=== PATIENT | male | born 1995 | race Caucasian/White ===

== ENCOUNTER 2017-01-29 07:48 | Emergency (ER) | payer SELFPAY ==
--- NOTE | 2017-01-29 08:23 | ER Document Report ---
ED General - General Chief Complaint: Suicidal Ideation Stated Complaint: PSYCH EVAL Time seen by provider: 08:21 Mode of Arrival: Medic Information source: Patient Notes: 21-year-old male says he's had suicidal thoughts for several days. He denies homicidal ideation and says he presents now because suicidal thoughts are more intense. Patient hesitates when asked about audio or visual hallucinations and refuses to directly answer the question on multiple occasions. He reports multiple family members who also have "problems like migraine" but he will not elaborate. He reports being in normal state of health otherwise recently Physical Exam: General: Alert, appears well. Calm and cooperative HEENT: Normocephalic. Atraumatic. PERRLA. Extraocular movements intact. Oropharynx clear. Neck: Supple. Non-tender. Respiratory: No respiratory distress. Clear and equal breath sounds bilaterally. Cardiovascular: Regular rate and rhythm. Abdominal: Normal Inspection. Soft, non-tender. No distension. Normal Bowel Sounds. Back: Non-tender. No deformity or step off. Extremities: Moves all four extremities. Upper extremities: Normal inspection. Non-tender. Normal color. Normal ROM. Normal temperature. Lower extremities: Normal inspection. Non-tender. No edema. Normal color. Normal ROM. Normal temperature. 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 Dry. Normal color. TRAVEL OUTSIDE OF THE [place] IN LAST 30 DAYS: No - Related Data Allergies/Adverse Reactions: No Known Allergies Allergy (Verified 07/03/15 21:55) Past Medical History - Social History Smoking Status: Current Every Day Smoker Family History: Other - Psychiatric problems patient could not further specify Patient has suicidal ideation: Yes Patient has homicidal ideation: No - Past Medical History Cardiac Medical History: Reports: None Pulmonary Medical History: Reports: None Psychiatric Medical History: Reports: Hx Bipolar Disorder Past Surgical History: Reports: Hx Oral Surgery - Immunizations Hx Diphtheria, Pertussis, Tetanus Vaccination: Yes Review of Systems - Review of Systems Constitutional: denies: Chills, Fever EENT: denies: Ear pain, Throat pain Cardiovascular: denies: Chest pain, Dyspnea Respiratory: denies: Cough, Short of breath Gastrointestinal: denies: Abdominal pain, Diarrhea, Nausea, Vomiting Genitourinary: denies: Burning, Dysuria Musculoskeletal: denies: Back pain Skin: denies: Rash Hematologic/Lymphatic: denies: Swollen glands Neurological/Psychological: denies: Weakness, Numbness Physical Exam - Vital signs Vitals: Temp Pulse Resp BP Pulse Ox 98.5 F 75 14 133/74 H 99 01/29/17 08:02 01/29/17 08:02 01/29/17 08:02 01/29/17 08:02 01/29/17 08:02 Course - Re-evaluation Re-evalutation: 01/29/17 10:03 Patient is medically clear for mental health disposition 01/29/17 15:27 Patient is more forthcoming now regarding circumstances of his arrival. He reports that he is long history of illicit drug use and also has feelings of worthlessness and pointlessness in life and had been lying on the couch and his grandfather's house for the past week. This morning grandfather told him he had to move out and this is what prompted patient's arrival here. Patient reports after arrival here and being around other people he feels that her spirits have been lifted he says he no longer feels suicidal. The patient is denying any audiovisual hallucinations and objectively is not hallucinating now and is able to carry on appropriate conversations. 01/29/17 15:50 01/29/17 15:56 Patient has been calm and cooperative during his stay here does not appear despondent or withdrawn. He reports no suicidal ideation now and he reports he did not ever really had suicidal ideation. Patient will be discharged with instructions follow-up with [facility]. He does not meet IVC criteria and I assessed him is not being a threat to self or others currently. - Vital Signs Vital signs: Temp Pulse Resp BP Pulse Ox 98.4 F 77 16 117/56 L 97 01/29/17 15:08 01/29/17 15:08 01/29/17 15:08 01/29/17 15:08 01/29/17 15:08 - Laboratory Result Diagrams: 01/29/17 08:20 01/29/17 08:20 Laboratory results interpreted by me: 01/29/17 08:20 BUN 23 H Salicylates < 1.0 L Acetaminophen < 10 L Urine tox screen negative - EKG Interpretation by Me Additional EKG results interpreted by me: 01/29/17 08:29 EKG reviewed by myself shows sinus rhythm at 74 with early repolarization changes 01/29/17 10:02 Discharge - Discharge Clinical Impression: Polysubstance abuse Bipolar disorder Qualifiers: Active/Remission status: remission status unspecified Qualified Code(s): F31.9 - Bipolar disorder, unspecified Condition: Good Disposition: HOME, SELF-CARE Additional Instructions: Bipolar Disorder Bipolar disorder is also called manic-depressive disorder. Depression alternates with brain hyperactivity called alaina. Each phase lasts from several days to a few weeks. We don't know exactly what causes bipolar disorder , but it's treatable. During the "manic phase," you may feel elated and energetic. You may have racing thoughts, rapid speech, increased activity, and grandiose ideas. During this time, you may not realize how poor your judgement is. Inappropriate spending, drug abuse, excessive alcohol use, marriage problems, and irresponsible sexual behavior are common during the manic phase. During the "depressive phase," you might feel depressed, guilty, worthless , fatigued, and unable to concentrate. You might have thoughts of suicide. Good treatments are available for bipolar disorder. [place] is a classic drug for bipolar disorder, and is still often useful. If the manic phase is very mild, an antidepressant alone can be prescribed. If the manic phase is very severe, an antipsychotic medicine (such as Haldol) may be needed. The treatment must be matched to your symptoms, so it's important to work closely with your psychiatric care provider. Contact your physician, the hospital emergency center, crisis line, or your counsellor if you are losing control or having self-destructive thoughts. Referrals: [facility] [Provider Group] - Follow up in 3-5 days
[2017-01-29 08:33] LABS: ABSOLUTE BASOPHILS # (AUTO) 0.1 10^3/uL (0.0-0.2); ABSOLUTE EOSINOPHILS # (AUTO) 0.5 10^3/uL (0.0-0.6); ABSOLUTE LYMPHOCYTES (AUTO) 2.2 10^3/uL (0.5-4.7); ABSOLUTE NEUT (AUTO) 5.4 10^3/uL (1.7-8.2); BASOPHILS % (AUTO) 0.9 % (0-2); EOSINOPHILS % (AUTO) 5.7 % (0-6); HEMATOCRIT 46.8 % (37.9-51.0); HEMOGLOBIN 16.1 g/dL (13.5-17.0); HGB HCT DIFFERENCE 1.5; LYMPHOCYTES % (AUTO) 23.8 % (13-45); MEAN CORPUSCULAR HEMOGLOBIN 31.6 pg (27.0-33.4); MEAN CORPUSCULAR HGB CONC 34.3 g/dL (32.0-36.0); MEAN CORPUSCULAR VOLUME 92 fl (80-97); MONOCYTES % (AUTO) 11.2 % (3-13); RED BLOOD COUNT 5.09 10^6/uL (4.35-5.55); RED CELL DISTRIBUTION WIDTH 13.7 % (11.5-14.0); SEGMENTED NEUTROPHILS % (AUTO) 58.4 % (42-78); WHITE BLOOD COUNT 9.2 10^3/uL (4.0-10.5)
[2017-01-29 08:46] LABS: APPEARANCE,URINE CLEAR; BILIRUBIN,URINE NEGATIVE (NEGATIVE); GLUCOSE, URINE NEGATIVE (NEGATIVE); KETONES,URINE NEGATIVE (NEGATIVE); LEUKOCYTE ESTERASE,URINE NEGATIVE (NEGATIVE); NITRITE,URINE NEGATIVE (NEGATIVE); PROTEIN,URINE NEGATIVE (NEGATIVE); URINE SPECIFIC GRAVITY 1.024; UROBILINOGEN,URINE NEGATIVE mg/dL (<2.0)
[2017-01-29 08:56] LABS: ALANINE AMINOTRANSFERASE 30 U/L (21-72); ALBUMIN 4.2 g/dL (3.5-5.0); ALKALINE PHOSPHATASE 74 U/L (38-126); ANION GAP 11 (5-19); ASPARTATE AMINO TRANSFERASE 20 U/L (17-59); BILIRUBIN,DIRECT 0.2 mg/dL (0.0-0.4); BILIRUBIN,TOTAL 0.3 mg/dL (0.2-1.3); BLOOD UREA NITROGEN 23 mg/dL (7-20); CALCIUM 9.4 mg/dL (8.4-10.2); CARBON DIOXIDE 29 mmol/L (22-30); CHLORIDE 102 mmol/L (98-107); CREATININE RESULT 0.95 mg/dL (0.52-1.25); GLUCOSE 88 mg/dL (75-110); POTASSIUM 4.6 mmol/L (3.6-5.0); TOTAL PROTEIN 6.6 g/dL (6.3-8.2)
[2017-01-29 08:59] LABS: ALCOHOL < 10 mg/dL (NONE DETECTED)
[2017-01-29 09:05] LABS: URINE BARBITURATES SCREEN NEGATIVE; URINE METHADONE SCREEN NEGATIVE; URINE OPIATES LOW NEGATIVE; URINE PHENCYCLIDINE SCREEN NEGATIVE
--- NOTE | 2017-01-29 13:25 | EKG REPORT ---
SEVERITY:- NORMAL ECG - SINUS RHYTHM ST ELEV, PROBABLE NORMAL EARLY REPOL PATTERN : Confirmed by: Dylan Vazquez MD 29-Jan-2017 13:23:43
[2017-01-29 15:09] VITALS: BP 117/56
--- NOTE | 2017-01-29 15:54 | ER Document Report ---
ED Psych Disorder / Suicide - General Chief Complaint: Psych Problem Stated Complaint: PSYCH EVAL Mode of Arrival: Medic Information source: Patient, Relative - multiple attempts made at contacting grandfather, [facility] Records TRAVEL OUTSIDE OF THE [place] IN LAST 30 DAYS: No - HPI Patient complains to provider of: Suicidal ideation Onset: Other - the past 6 days Onset was: Gradual Suicide Risk Factors: Bipolar, Lack of social support, Male, No spouse, Substance abuse - patietn alludes to cannabis abuse and is unclear when he recently discontinued use. Possibly a few weeks ago. Situational problems related to: Work, Other - famillial stressors Normal mood: Yes Associated symptoms: Normal affect - odd, but likely baseline, Flat affect, Flight of ideas, Manic - hypomanic, Uncooperative Similar symptoms previously: Yes - history of Recently seen / treated by doctor: No Notes: Patient is a 21-year-old male who presented early this morning via EMS due to self-reported suicidal ideations. Initially upon arrival patient was guarded with information and did not provide specifics. Example when charge nurse triaged patient into system, instead of reporting symptoms he asked her if she wanted the ICD-9 diagnoses codes. Patient additionally would not provide specific information to M.D. Patient this afternoon provided a rather lengthy story of his past week when asked what prompted his call this morning. Patient' s discloses a recent "revelation" of his lifestyle which resulted in him breaking up with a girlfriend, to leading certain contacts from his phone, and temporarily staying with his grandfather. Patient discussed these events circumferentially. Patient was eventually redirected and acknowledged he does not need to be here and is facing eviction which is why he called 911. Patient eventually stated he wants to be discharged so he may go to [employer] and sell his plasma for money. Patient was asked multiple times to provide a phone number for his grandfather, which he did eventually provide a number but states his grandfather informed him this morning that he was taking apart his phone and would be unavailable. Did challenge the patient as this does not make sense ; however, no further information was provided. A careful review of patient's medical record does suggest prior episodes. She was most recently seen in 2013 ; however, at that time presented with symptoms more congruent with manic and aggressive bipolar disorder. Patient today presents hypomanic, but does not appear to be a danger to himself. Patient denies suicidal ideations. Patient denies having considered a plan for suicide and further denies means. Patient states he was lonely this morning after having laid around the house for a few days with no contact post-breakup with his girlfriend. Patient's grandfather, : this number went straight to voicemail with no identifying information. Will attempt again. Patient's lodge officer, Mrs. Jain: left [facility] [place] return contact. Clinician returned contact and spoke with PO who states the patient has multiple charges, to include assault on female as well as injury to personal property. PO states she has not yet met with the individual, and has limited information. Mother, Nicolle Power, : number no longer in service; : voice mailbox has not been set up yet. Patient is alert and oriented 4. Mood is euthymic with odd affect. Patient denies suicidal/homicidal ideations, intent, plan, means. Patient states he would like to sign out so he can walk to [employer] cell his plasma and then walk home and ride his bicycle. Patient denies auditory visual hallucinations; delusions not noted. Thought processes were circumstantial. Conversational speech was low for prosody. Intellectual abilities were estimated within low average range. Attention and focus are poor. Insight, judgment, impulse control were poor. Patient is psychiatrically cleared and recommended for discharge. Patient presents with a rather lengthy story regarding his life over the past few months. Patient states he called EMS this morning because he was facing eviction. Patient reports he was laying around his grandfather's house and disengaged from society and all people. Patient states he was lonely. Patient states he has come to realize after being here in the department that he needs to be around other people, which is what attracts him about [employer]. Patient does present hypomanic (has all of the answers end (but does deny suicidal ideations. Patient does endorse having passive ideations early this morning, but denies plan or means. Patient reports prior suicide attempts as a teenager ages 15 and 16 via cutting on his wrists. Additionally endorses recently stopping drug use possibly on or around the beginning of January after daily smoking marijuana times multiple years. Attempts were made a contacting patient's lodge officer given the patient is homeless and most likely is required to provide an address for probationary requirements. Patient does states he can stay with another individual who resides down the street, but is unable to produce a name and contact information. At this time it is unclear at the phone number provided for his grandfather is actually for his grandfather. Will continue to attempt calling to secure a ride home, per the request of the ED M.D. - Related Data Allergies/Adverse Reactions: No Known Allergies Allergy (Verified 07/03/15 21:55) Past Medical History - General Information source: Patient - Social History Smoking Status: Current Every Day Smoker Chew tobacco use (# tins/day): No Frequency of alcohol use: None Drug Abuse: None Family History: Other - Psychiatric problems patient could not further specify Patient has suicidal ideation: Yes Patient has homicidal ideation: No - Past Medical History Cardiac Medical History: Reports: None Pulmonary Medical History: Reports: None Past Surgical History: Reports: Hx Oral Surgery - Immunizations Hx Diphtheria, Pertussis, Tetanus Vaccination: Yes Physical Exam - Vital signs Vitals: Temp Pulse Resp BP Pulse Ox 98.5 F 75 14 133/74 H 99 01/29/17 08:02 01/29/17 08:02 01/29/17 08:02 01/29/17 08:02 01/29/17 08:02 Course - Vital Signs Vital signs: Temp Pulse Resp BP Pulse Ox 98.4 F 77 16 117/56 L 97 01/29/17 15:08 01/29/17 15:08 01/29/17 15:08 01/29/17 15:08 01/29/17 15:08 - Laboratory Result Diagrams: 01/29/17 08:20 01/29/17 08:20 Laboratory results interpreted by me: 01/29/17 08:20 BUN 23 H Salicylates < 1.0 L Acetaminophen < 10 L Discharge - Discharge Condition: Good Disposition: HOME, SELF-CARE
== END 2017-01-29 16:20 | disposition home or self-care (01) ==
LOC: ER 07:48
DX: R45.851 Suicidal ideations (principal); F17.200 Nicotine dependence, unspecified, uncomplicated; F31.9 Bipolar disorder, unspecified; Z87.898 Personal history of other specified conditions
CPT/HCPCS: 36415; 80053; 80307; 81001; 85025; 93005; 93010; 99285

== ENCOUNTER 2020-04-07 09:08 | Emergency (ER) | payer SELFPAY ==
[2020-04-07 10:03] LABS: ABSOLUTE EOSINOPHILS # (AUTO) 0.1 10^3/uL (0.0-0.6); ABSOLUTE LYMPHOCYTES (AUTO) 1.1 10^3/uL (0.5-4.7); ABSOLUTE MONOCYTES (AUTO) 0.9 10^3/uL (0.1-1.4); ABSOLUTE NEUT (AUTO) 7.5 10^3/uL (1.7-8.2); BASOPHILS % (AUTO) 0.4 % (0-2); EOSINOPHILS % (AUTO) 1.2 % (0-6); HEMATOCRIT 50.1 % (37.9-51.0); HEMOGLOBIN 17.5 g/dL (13.5-17.0); LYMPHOCYTES % (AUTO) 11.4 % (13-45); MEAN CORPUSCULAR HEMOGLOBIN 33.1 pg (27.0-33.4); MEAN CORPUSCULAR HGB CONC 34.9 g/dL (32.0-36.0); MEAN CORPUSCULAR VOLUME 95 fl (80-97); MONOCYTES % (AUTO) 9.3 % (3-13); PLATELET COUNT 211 10^3/uL (150-450); RED BLOOD COUNT 5.28 10^6/uL (4.35-5.55); RED CELL DISTRIBUTION WIDTH 14.2 % (11.5-14.0); SEGMENTED NEUTROPHILS % (AUTO) 77.7 % (42-78); TOTAL CELLS COUNTED % (AUTO) 100 %; WHITE BLOOD COUNT 9.7 10^3/uL (4.0-10.5)
[2020-04-07 10:07] LABS: APPEARANCE,URINE SLIGHTLY-CLOUDY; BILIRUBIN,URINE NEGATIVE (NEGATIVE); GLUCOSE, URINE NEGATIVE (NEGATIVE); KETONES,URINE TRACE mg/dL (NEGATIVE); LEUKOCYTE ESTERASE,URINE NEGATIVE (NEGATIVE); NITRITE,URINE NEGATIVE (NEGATIVE); PROTEIN,URINE 30 mg/dL (NEGATIVE)
[2020-04-07 10:08] LABS: COLOR,URINE YELLOW
[2020-04-07 10:23] LABS: URINE BARBITURATES SCREEN NEGATIVE; URINE BENZODIAZEPINES SCREEN NEGATIVE; URINE COCAINE SCREEN NEGATIVE; URINE METHADONE SCREEN NEGATIVE; URINE PHENCYCLIDINE SCREEN NEGATIVE
[2020-04-07 10:30] LABS: ALBUMIN 4.8 g/dL (3.5-5.0); ALKALINE PHOSPHATASE 81 U/L (38-126); ANION GAP 7 (5-19); ASPARTATE AMINO TRANSFERASE 45 U/L (17-59); BILIRUBIN,TOTAL 0.9 mg/dL (0.2-1.3); BLOOD UREA NITROGEN 9 mg/dL (7-20); CALCIUM 9.9 mg/dL (8.4-10.2); CARBON DIOXIDE 28 mmol/L (22-30); CHLORIDE 102 mmol/L (98-107); GLUCOSE 114 mg/dL (75-110); POTASSIUM 4.5 mmol/L (3.6-5.0); TOTAL PROTEIN 7.5 g/dL (6.3-8.2)
[2020-04-07 10:31] LABS: ACETAMINOPHEN < 10 ug/mL (10-30); ALCOHOL < 10 mg/dL (NONE DETECTED); SALICYLATE < 1.0 mg/dL (2.0-20.0)
[2020-04-07 10:49] LABS: URINE MARIJUANA (THC) SCREEN UNCONFIRMED POSITIVE
--- NOTE | 2020-04-07 11:13 | ER Document Report ---
ED General <MELISSA REYNOLDS - Last Filed: 04/07/20 13:10> - General TRAVEL OUTSIDE OF THE [place] IN LAST 30 DAYS: No <ALEXA MCGRAW - Last Filed: 04/07/20 13:24> - General Chief Complaint: Psych Problem Stated Complaint: POSSIBLE OVERDOSE Time Seen by Provider: 04/07/20 10:03 Primary Care Provider: [facility] [Outside] - Follow up as needed - HPI Notes: Chief complaint: "A lot of weird stuff is happening to me after I did some drugs" HPI: 25-year-old male with history of ADHD and impulse control disorder along with polysubstance abuse comes in today reporting a wide array of concerns after using some unknown substances. Patient is a very rambling historian but as best I can understand his narrative he tells me that he had been in half-way for about 30 days related to a domestic assault charge brought by girlfriend. Since he is left half-way he has been homeless and living in a tent. He states he has been doing a lot of walking and his feet were hurting very badly. An acquaintance who is also homeless gave him some marijuana to smoke and subsequently provide another unknown substance for him to smoke about 3 days ago. After this another acquaintance also gave him an unknown substance and told him he should injected in his vein because it would help his feet feel better. The patient did so. He comes in today with a wide array of concerns and symptoms. He wants to be checked for hepatitis. He says his teeth are discolored since he smoked the unknown substance and indicates that his mouth is very irritated. He also says that he is sore over the left antecubital area where he injected himself with the unknown drug. He is having some occasional palpitations. He denies chest pain. Patient's insight is very poor. He denies any homicidal or suicidal ideation. He denies any auditory or visual hallucinations. He says he rarely consumes alcohol at this time. (ALEXA MCGRAW) - Related Data Allergies/Adverse Reactions: No Known Allergies Allergy (Verified 04/07/20 09:26) Past Medical History - General Information source: Patient, [facility] Records - Social History Smoking Status: Current Every Day Smoker Chew tobacco use (# tins/day): No Frequency of alcohol use: Occasional Drug Abuse: Marijuana, Other - As per HPI Family History: Other - Psychiatric problems patient could not further specify Patient has homicidal ideation: No Psychiatric Medical History: Reports: Hx Bipolar Disorder Past Surgical History: Reports: Hx Oral Surgery - Immunizations Hx Diphtheria, Pertussis, Tetanus Vaccination: Yes <ALEXA MCGRAW - Last Filed: 04/07/20 13:24> Review of Systems <ALEXA MCGRAW - Last Filed: 04/07/20 13:24> - Review of Systems Notes: Constitutional: Negative for fever. HENT: Negative for sore throat. Eyes: Negative for visual changes. Cardiovascular: Palpitations as per HPI. Negative for chest pain. Respiratory: Negative for shortness of breath. Gastrointestinal: Negative for abdominal pain, vomiting or diarrhea. Genitourinary: Negative for dysuria. Musculoskeletal: Negative for back pain. Skin: Negative for rash. Neurological: Negative for headaches, weakness or numbness. 10 point ROS negative except as marked above and in HPI. (ALEXA MCGRAW) Physical Exam <ALEXA MCGRAW - Last Filed: 04/07/20 13:24> - Vital signs Vitals: Temp Pulse Resp BP Pulse Ox 98.6 F 112 H 18 149/100 H 98 04/07/20 09:20 04/07/20 09:20 04/07/20 09:20 04/07/20 09:20 04/07/20 09:20 - Notes Notes: GENERAL: Well-developed well-nourished appearing slightly anxious but otherwise in no acute distress. SKIN: Good turgor no rashes. HEAD: Normocephalic atraumatic. EYES: PERRLA. EOMI. Conjunctivae and sclerae clear. EARS: CANALS AND TMS CLEAR. NOSE: CLEAR. MOUTH: Moist mucosa. Patient appears to have some inflammation of the gums which he attributes to smoking unknown substance. Good dentition. No stridor or edema. No drooling. NECK: Supple. No masses or thyromegaly. No adenopathy. Carotids 2+ without bruits. No JVD. BACK: Symmetrical without tenderness. CHEST: Respirations unlabored. Breath sounds clear and symmetrical. HEART: Tachycardic regular rhythm. No murmur gallop or rub. ABDOMEN: Soft nontender without masses, organomegaly or rebound. Bowel sounds normally active. No bruits. GENITALIA: Deferred. EXTREMITIES: Patient appears to have needle tracks both antecubital fossae. He insists that this is where he is donated plasma. No edema. No calf tenderness. Cap refill less than 1.5 seconds. Dorsalis pedis and posterior tibial pulses 3+ and symmetrical. NEUROLOGICAL: GCS 15. Alert and oriented x3. Normal gait. Fluent speech. Cranial nerves II through XII intact. Sensorimotor and cerebellar normal. Normal tone. PSYCHIATRIC: Moderate flight of ideas. Slightly anxious affect. (ALEXA MCGRAW) Course - Laboratory Result Diagrams: 04/07/20 06:50 04/07/20 06:50 <MELISSA REYNOLDS - Last Filed: 04/07/20 13:10> - Laboratory Result Diagrams: 04/07/20 06:50 04/07/20 06:50 <ALEXA MCGRAW - Last Filed: 04/07/20 13:24> - Re-evaluation Re-evalutation: 04/07/20 11:23 Urine drug screen is positive for THC and presumptive positive for methamphetamine. 04/07/20 13:23 Patient is cleared medically. [facility] and they have provided resources for outpatient follow-up. They feel that he does not meet criteria for inpatient psychiatric care or IVC and I concur with this opinion. Patient is advised to abstain from all use of controlled substances and will be discharged at this time. (ALEXA MCGRAW) - Vital Signs Vital signs: Temp Pulse Resp BP Pulse Ox 98.6 F 112 H 18 149/100 H 98 04/07/20 09:27 04/07/20 09:20 04/07/20 09:20 04/07/20 09:20 04/07/20 09:20 - Laboratory Laboratory results interpreted by me: 04/07/20 04/07/20 04/07/20 06:50 06:50 06:50 Hgb 17.5 H RDW 14.2 H Lymph % (Auto) 11.4 L Glucose 114 H Urine Protein 30 H Urine Ketones TRACE H Urine Urobilinogen 4.0 H Salicylates < 1.0 L Acetaminophen < 10 L - EKG Interpretation by Me Additional EKG results interpreted by me: 04/07/20 11:23 Twelve-lead EKG from 0959 hrs. is reviewed contemporaneously by me demonstrating sinus tachycardia with a rate of 101. Intervals are normal. His QRS axis is +31 degrees. He has some changes consistent with early repolarization and studies otherwise unremarkable. When compared to a previous tracing from 01/29/2017 there is no significant interval change aside from increased rate. Indication for current study: Tachycardia. (ALEXA MCGRAW) Discharge <MELISSA REYNOLDS - Last Filed: 04/07/20 13:10> <ALEAX MCGRAW - Last Filed: 04/07/20 13:24> - Discharge Clinical Impression: Substance abuse, Homeless Condition: Stable Disposition: HOME, SELF-CARE Additional Instructions: You have been evaluated both medical and behavioral teams have been deemed appropriate for discharge. Please do not use illegal substances or any unknown substances. Your unpleasant symptoms are due to a drug you're taking. You are highly encouraged to follow up with substance abuse treatment. A list of area providers, detox facilities, mobile crisis contact information and socioeconomic resources for the area has been provided to you. AMPHETAMINE / METHAMPHETAMINE ABUSE: Amphetamines are addicting stimulants. Amphetamines overstimulate the nervous system and give a false feeling of power and mastery. These drugs may be obtained as prescription pills for weight loss, narcolepsy, or attention-deficit disorder. More often they're bought as an illegal street drug, methamphetamine (crank, crystal, speed). Using amphetamines repeatedly can lead to serious medical problems including malnutrition, severe depression, and paranoia. It can take increasing amounts to feel good. Eventually, there will be a "burn out." When you go off amphetamines there is a period of depression that may last for weeks or even months. High doses of amphetamines can cause seizures, confusion, hallucinations, delusions, high blood pressure, muscle damage, heart damage, or sudden . Many times these deadly complications occur even with "normal" doses. Injection of amphetamines is risky for developing abscesses, endocarditis (heart infection), pneumonia, and AIDS. Withdrawal from amphetamines often causes anxiety, depression, and drug cravings. Some users become paranoid and psychotic. There may be cramps, nausea, and vomiting. Many treatment programs are available, but you must make the decision to quit. Medication can be prescribed to control the symptoms of amphetamine toxicity (beta blockers or benzodiazepines). Withdrawal symptoms may require tranquilizers. FOLLOW-UP CARE: If you have been referred to a physician for follow-up care, call the physicians office for an appointment as you were instructed or within the next two days. If you experience worsening or a significant change in your symptoms, notify the physician immediately or return to the Emergency Department at any time for re-evaluation. Referrals: [facility] [Outside] - Follow up as needed
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
--- NOTE | 2020-04-07 13:32 | EKG REPORT ---
SEVERITY:- BORDERLINE ECG - SINUS TACHYCARDIA PROBABLE LEFT ATRIAL ABNORMALITY : Confirmed by: Dylan Vazquez MD 07-Apr-2020 13:32:03
[2020-04-07 13:49] VITALS: BP 146/92
== END 2020-04-07 13:49 | disposition home or self-care (01) ==
LOC: ER 09:08
DX: F12.10 Cannabis abuse, uncomplicated (principal); F17.200 Nicotine dependence, unspecified, uncomplicated; R00.2 Palpitations; R00.0 Tachycardia, unspecified; F22 Delusional disorders; F41.9 Anxiety disorder, unspecified; Z59.0 Homelessness
CPT/HCPCS: 36415; 80053; 80307; 81001; 85025; 93005; 93010; 99285

== ENCOUNTER 2020-05-15 10:57 | Emergency (ER) | payer SELFPAY ==
[2020-05-15] MEDS ORDERED: DIPHENHYDRAMINE HCL 50 MG/ML VIAL IV ONE (11:14)
[2020-05-15] MEDS ORDERED: LORAZEPAM INJ 2 MG/1 ML VIAL IV ONE (11:14)
[2020-05-15] MEDS ORDERED: HALOPERIDOL LACTATE INJ 5 MG/1 ML VIAL IV ONE (11:14)
--- NOTE | 2020-05-15 11:21 | ER Document Report ---
ED General - General Chief Complaint: Psych Problem Stated Complaint: PSYCH Notes: Patient is a 25-year-old white male with a history of suicidal ideations and prior drug abuse with methamphetamine and marijuana who presents to the emergency department via EMS with a chief complaint of having "snakes in my veins". The patient states that they started today in his hands. He states that snakes are their deep in his arms and hands and he needs someone to cut him open so that he can remove the snakes before they travel further. Patient reports he returned from [facility] 2 days ago and was having a "bad day", reports his friend gave him some "white powder", he reports he is unsure what it was but he snorted it. He states it was probably meth but could have been cocaine, he does not know. He states his been sleeping normally lately but today was found by EMS walking on the side of the road screaming for help, EMS was called by [facility] who upon arrival found the patient to be paranoid, tachycardic and sweaty complaining of the snakes in his veins. EMS gave 900 of LR, 5 of Versed. Patient still very agitated and anxious. TRAVEL OUTSIDE OF THE [place] IN LAST 30 DAYS: No - Related Data Allergies/Adverse Reactions: No Known Allergies Allergy (Verified 05/15/20 11:38) Past Medical History - Social History Smoking Status: Unknown if Ever Smoked Family History: Other - Psychiatric problems patient could not further specify Psychiatric Medical History: Reports: Hx Bipolar Disorder Past Surgical History: Reports: Hx Oral Surgery - Immunizations Hx Diphtheria, Pertussis, Tetanus Vaccination: Yes Review of Systems - Review of Systems -: Yes ROS unobtainable due to patient's medical condition Physical Exam - Vital signs Vitals: Temp Pulse Resp BP Pulse Ox 99.0 F 126 H 22 H 137/95 H 98 05/15/20 11:50 05/15/20 11:50 05/15/20 11:50 05/15/20 11:50 05/15/20 11:50 - General General appearance: Alert, Anxious In distress: Mild - HEENT Head: Normocephalic, Atraumatic Eyes: Normal Conjunctiva: Normal Extraocular movements intact: Yes Eyelashes: Normal Pupils: PERRL Neck: Supple - Respiratory Respiratory status: No respiratory distress Chest status: Nontender Breath sounds: Normal Chest palpation: Normal - Cardiovascular Rhythm: Tachycardia Heart sounds: Normal auscultation Murmur: No - Extremities General lower extremity: No: Tender, Edema - Neurological Neuro grossly intact: Yes Cognition: Other - Appears under the influence of an unknown substance Orientation: Disoriented to time [place] Scale Eye Opening: Spontaneous Geremias Coma Scale Verbal: Oriented [place] Scale Motor: Obeys Commands [place] Scale Total: 15 Speech: Normal Cranial nerves: No: Facial palsy Cerebellar coordination: No: Gait ataxia 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 Despite chemical restraint he is still agitated and combative. Patient will be placed in soft restraints at this time for his s afety. 05/15/20 12:18 EK:09 AM shows sinus tachycardia at 126 bpm. Normal intervals. Left axis deviation. No STEMI. Similar to previous EKG dated 04/07/2020 where the patient was also tachycardic. Interpreted by ED attending. 05/15/20 14:31 Patient has an elevated CK, being treated with IV fluids. Received a 2 L normal saline bolus. Will start on 100 cc/h maintenance fluids until patient CK improves and he can tolerate oral intake well at a normal mentation. 05/15/20 14:32 Patient is medically cleared otherwise. He is positive for polysubstance. Psychiatry has evaluated and advised plan for IVC and overnight hold. We will continue to monitor. - Vital Signs Vital signs: Temp Pulse Resp BP Pulse Ox 99.0 F 126 H 22 H 137/95 H 98 05/15/20 11:50 05/15/20 11:50 05/15/20 11:50 05/15/20 11:50 05/15/20 11:50 - Laboratory Result Diagrams: 05/15/20 11:05 05/15/20 11:05 Laboratory results interpreted by me: 05/15/20 05/15/20 05/15/20 11:05 11:05 11:16 MCH 33.5 H RDW 14.5 H Sodium 134.4 L Chloride 97 L Glucose 112 H Total Bilirubin 1.6 H AST 104 H Creatine Kinase 1489 H Urine Protein >=500 H Urine Ketones 20 H Urine Bilirubin SMALL H Urine Urobilinogen 4.0 H Salicylates < 1.0 L Acetaminophen < 10 L Discharge - Discharge Clinical Impression: Tactile hallucination, Polysubstance abuse, Elevated CK Condition: Stable Disposition: PSYCH HOSP/UNIT
[2020-05-15 11:31] LABS: ABSOLUTE EOSINOPHILS # (AUTO) 0.2 10^3/uL (0.0-0.6); ABSOLUTE LYMPHOCYTES (AUTO) 1.4 10^3/uL (0.5-4.7); ABSOLUTE MONOCYTES (AUTO) 1.3 10^3/uL (0.1-1.4); ABSOLUTE NEUT (AUTO) 7.2 10^3/uL (1.7-8.2); BASOPHILS % (AUTO) 0.4 % (0-2); EOSINOPHILS % (AUTO) 1.6 % (0-6); HEMATOCRIT 48.1 % (37.9-51.0); LYMPHOCYTES % (AUTO) 13.9 % (13-45); MEAN CORPUSCULAR HEMOGLOBIN 33.5 pg (27.0-33.4); MEAN CORPUSCULAR HGB CONC 35.4 g/dL (32.0-36.0); MEAN CORPUSCULAR VOLUME 95 fl (80-97); MONOCYTES % (AUTO) 12.9 % (3-13); PLATELET COUNT 207 10^3/uL (150-450); RED BLOOD COUNT 5.07 10^6/uL (4.35-5.55); RED CELL DISTRIBUTION WIDTH 14.5 % (11.5-14.0); SEGMENTED NEUTROPHILS % (AUTO) 71.2 % (42-78); TOTAL CELLS COUNTED % (AUTO) 100 %; WHITE BLOOD COUNT 10.2 10^3/uL (4.0-10.5)
[2020-05-15 11:35] LABS: INTERNATIONAL RATION (INR) 1.09; PROTHROMBIN TIME 14.1 SEC (11.4-15.4)
[2020-05-15 11:46] LABS: ALBUMIN 4.9 g/dL (3.5-5.0); ALKALINE PHOSPHATASE 84 U/L (38-126); ANION GAP 10 (5-19); ASPARTATE AMINO TRANSFERASE 104 U/L (17-59); BILIRUBIN,DIRECT 0.3 mg/dL (0.0-0.4); BILIRUBIN,TOTAL 1.6 mg/dL (0.2-1.3); BLOOD UREA NITROGEN 14 mg/dL (7-20); CALCIUM 9.8 mg/dL (8.4-10.2); CARBON DIOXIDE 27 mmol/L (22-30); CHLORIDE 97 mmol/L (98-107); CREATINE KINASE 1489 U/L (55-170); GLUCOSE 112 mg/dL (75-110); POTASSIUM 3.8 mmol/L (3.6-5.0); TOTAL PROTEIN 7.5 g/dL (6.3-8.2)
[2020-05-15 11:48] LABS: ACETAMINOPHEN < 10 ug/mL (10-30); ALCOHOL < 10 mg/dL (NONE DETECTED); SALICYLATE < 1.0 mg/dL (2.0-20.0)
[2020-05-15 11:55] LABS: URINE BARBITURATES SCREEN NEGATIVE; URINE COCAINE SCREEN NEGATIVE; URINE METHADONE SCREEN NEGATIVE; URINE PHENCYCLIDINE SCREEN NEGATIVE
[2020-05-15 11:56] LABS: URINE BENZODIAZEPINES SCREEN UNCONFIRMED POSITIVE; URINE MARIJUANA (THC) SCREEN UNCONFIRMED POSITIVE
--- NOTE | 2020-05-15 12:10 | RADIOLOGY REPORT (SQ) ---
EXAM DESCRIPTION: CHEST SINGLE VIEW IMAGES COMPLETED DATE/TIME: 05/15/2020 11:50 am REASON FOR STUDY: tachy COMPARISON: None. EXAM PARAMETERS: NUMBER OF VIEWS: One view. TECHNIQUE: Single frontal radiographic view of the chest acquired. RADIATION DOSE: NA LIMITATIONS: None. FINDINGS: LUNGS AND PLEURA: No opacities, masses or pneumothorax. No pleural effusion. MEDIASTINUM AND HILAR STRUCTURES: No masses. Contour normal. HEART AND VASCULAR STRUCTURES: Heart normal in size. Normal vasculature. BONES: No acute findings. HARDWARE: None in the chest. OTHER: No other significant finding. IMPRESSION: NO ACUTE RADIOGRAPHIC FINDING IN THE CHEST. TECHNICAL DOCUMENTATION: JOB ID: [id number] 2010 [employer]- All Rights Reserved Reading location - IP/workstation name: [email or web address]
[2020-05-15] MEDS ORDERED: NORMAL SALINE 1000 ML 1,000 ML IV ONE ×2 (12:15→14:31)
[2020-05-15 14:19] LABS: APPEARANCE,URINE CLOUDY; BILIRUBIN,URINE SMALL (NEGATIVE); COLOR,URINE AMBER; GLUCOSE, URINE NEGATIVE (NEGATIVE); KETONES,URINE 20 mg/dL (NEGATIVE); PROTEIN,URINE >=500 mg/dL (NEGATIVE); URINE SPECIFIC GRAVITY 1.029
--- NOTE | 2020-05-15 14:33 | PSYCHOLOGICAL NOTE ---
Psych Note - Psych Note Date seen by psych provider: 05/15/20 Time seen by psych provider: 11:20 Psych Note: Reason for consult: Altered mental status Patient arrived to [facility] ED via EMS for altered mental status. Patient is currently under the influence of methamphetamines and experiencing hallucinations. Patient believes he has snakes in his veins and asked attending provider to cut open his arm to get them out. Patient is known to this clinician and department and received a psychiatric evaluation on 04/07/2020. Patient was homeless on 04/07/2020 and multiple needle harman were noted on his inner elbows; while the patient denied being an addict. Patient is currently unable to engage in evaluation as he required pharmaceutical and soft restraints for his and staff safety. Clinical presentation: Methamphetamine intoxication visual and tactile hallucinations Medication recommendations per [facility]'s contracted psychiatrist Dr Herbert URENA are as follows: Thorazine 50mg every 8 hours as needed Impression\plan: Patient is recommended for 24-hour petition for evaluation; paperwork is signed and placed in patient's chart. patient admits to using an unknown substance; toxicology report indicates probable methamphetamine. Patient demonstrated hallucinations upon arrival; probable due to methamphetamine intoxication. Dr. Kevin was consulted in the care management of this patient; attending physicians in agreement with recommendations and disposition.
[2020-05-15] MEDS ORDERED: CHLORPROMAZINE HCL INJ 25 MG/1 ML AMPULE IM PRN (16:54)
--- NOTE | 2020-05-15 21:37 | EKG REPORT ---
SEVERITY:- ABNORMAL ECG - SINUS TACHYCARDIA PROBABLE LEFT ATRIAL ABNORMALITY LEFT AXIS DEVIATION ABNORMAL Q SUGGESTS ANTERIOR INFARCT : Confirmed by: Celso Bai 15-May-2020 21:36:29
[2020-05-16 10:09] VITALS: BP 138/84
--- NOTE | 2020-05-16 17:05 | PSYCHOLOGICAL NOTE ---
Psych Note - Psych Note Date seen by psych provider: 05/16/20 Time seen by psych provider: 10:10 Psych Note: Reason for Consult: Substance abuse psychosis Check in conducted with patient Patient presents back to baseline but is no longer under the influence of methamphetamines. Patient admits to using meth however will not reflect on his use as abuse. Clinician attempted to use motivational interviewing techniques to reframe patient's recent chain of events all resulted from his drug abuse; unfortunately, patient continues to willfully identify alternate illogical reasons for events i.e. when he saw possible snakes in his skin he reports he is only wearing one contact and thinks that he was having difficulty focusing going back and forth between one eye with contact in the other eye without. Patient confirms he is homeless again has lost a recent job due to his drug use. He reports that he is not concerned too much because he is just had contact with an old boss in which he thinks he will be able to work again with him. Clinical presentation Substance abuse; severe Homelessness Impression\plan: Patient is recommended for rescind of IVC and is cleared from acute psychiatric services my: Paperwork is signed and placed in patient's chart. Patient continues to willfully ignore the connection between his substance abuse and recent negative chain of events that he is experienced such as job loss homelessness loss of friends etc. Current prognosis is poor. Clinician attempted to provide psychoeducation and using motivational interviewing techniques and attempt to assist the patient in reflecting honestly on his substance abuse without success. Patient is again recommended to abstain from using methamphetamines as this has been causing his recent bout of hallucinations. [place] was consulted in the care management of this patient; attending physicians in agreement with recommendations and disposition.
== END 2020-05-16 12:53 | disposition home or self-care (01) ==
LOC: ER 10:57
DX: F19.10 Other psychoactive substance abuse, uncomplicated (principal); R44.2 Other hallucinations; R44.1 Visual hallucinations; R79.89 Other specified abnormal findings of blood chemistry; E86.0 Dehydration; R45.1 Restlessness and agitation; R45.4 Irritability and anger; R00.0 Tachycardia, unspecified; Z78.1 Physical restraint status; Z59.0 Homelessness
CPT/HCPCS: 93005; 99285; 96361; 96374; 96375; 36415; 80307 ×4; 82550; 85025; 85610; 85730; 80053; 81001; 84484; 71045; 93010; J1200; J1630; J2060; J7030